=== PATIENT | female | born 2000 | race Caucasian/White ===

== ENCOUNTER 2018-02-17 12:01 | Emergency (ER) | payer MEDICAID, OTHER, SELFPAY | END 2018-02-17 13:17 | disposition left against medical advice (07) | LOC: ED 12:10 | DX: R22.32 Localized swelling, mass and lump, left upper limb (principal) | CPT/HCPCS: 99281 ==

== ENCOUNTER 2018-11-15 01:35 | Emergency (ER) | payer OTHER, MEDICAID, SELFPAY ==
[2018-11-15 01:46] VITALS: BP 124/78; PULSE 81; RESP 18; TEMP 37.1; O2SAT 100; BMI 25.2
[2018-11-15] MEDS: ONDANSETRON 4 MG/2 ML INJ IV ×2 (02:23→05:04)
--- NOTE | 2018-11-15 02:37 | ED_ITS ---
HPI - Abdominal Pain General Chief Complaint: Abdominal Pain Stated Complaint: vomiting x 2 hours, sharp pain left side Time Seen by Provider: 11/15/18 02:36 Source: patient Mode of arrival: ambulatory Limitations: no limitations History of Present Illness HPI narrative: The patient went out this evening with friends, she went to driving. She did not feel like eating before they left. She did have a sandwich was there. After eating she developed nausea and vomiting. She has chills and no fever. She has no diarrhea. No one around her has been ill. She has no chronic GI problems. She is not , she has no dysuria. She has no obvious problems. She is generally healthy with no medications. She has no URI symptoms, cough, congestion or discharge discomfort. Related Data Previous Rx's Medication Instructions Recorded ondansetron 4 mg PO Q4H PRN #10 tab 11/15/18 Allergies Allergy/AdvReac Type Severity Reaction Status Date / Time No Known Drug Allergies Allergy Verified 11/15/18 02:22 Review of Systems Constitutional Reports system reviewed and no additional complaints, except as docu Eyes Comments: No complaints ENT Ears, Nose, Mouth, and Throat: Denies dizziness Comments: No complaints Cardiovascular Denies chest pain, Denies rapid heart rate and Denies dyspnea Respiratory Denies cough and Denies dyspnea Gastrointestinal Gastrointestinal: Reports abdominal pain, Denies diarrhea and Reports vomiting Genitourinary Denies dysuria Comments: Not Musculoskeletal Reports back pain Integumentary/Breasts Denies rash Neurologic Denies confusion and Denies dizziness Psychiatric Denies confusion [facility] Medical History (Updated 11/15/18 @ 05:29 by Bryn Huddleston MD) No active medical problems (Acute) Surgical History (Updated 11/15/18 @ 02:47 by Bryn Huddleston MD) No pertinent past surgical history (Acute) Social History Smoking Status: Never smoker Social History Smoking Status: Never smoker Exam Initial Vital Signs Initial Vital Signs: Vital Signs Temperature 98.8 F 11/15/18 01:46 Pulse Rate 81 11/15/18 01:46 Respiratory Rate 18 11/15/18 01:46 Blood Pressure 124/78 11/15/18 01:46 Pulse Oximetry 100 07/20/19 01:46 Const General: cooperative and well developed Nutritional Appearance: well nourished Orientation: alert, awake, oriented x3 and not confused Other: She is shaking with chills HENMT Head: normocephalic and atraumatic Mouth: oral mucosae normal and oropharynx normal Eyes Pupils: PERRL EOM: EOM intact bilaterally Resp Auscultation: clear to auscultation bilaterally Cardio Rate: regular rate Rhythm: regular rhythm Heart Sounds: S1 normal, S2 normal, no murmurs and no rubs GI Inspection: non-distended Palpation: No guarding and tender (Mild epigastric and LUQ tenderness.) Auscultation: normal bowel sounds Back/Spine/Pelvis Back: CVA tenderness left Skin General: no rashes or lesions noted Neuro General: alert, oriented x3, gait normal and no focal motor deficits Speech: speech normal Extrem General: full ROM and no clubbing, cyanosis or edema Psych Appearance: well kempt Mental Status: mental status grossly normal Attitude: cooperative Thought Content: normal and suicidality Judgment: judgment good Course Course Narrative: The patient is feeling significantly better after receiving IV fluids, and IV medications. I did give her a 2nd dose of Zofran due to recurre nce of nausea. There is no further emesis. She is now with sip water without nausea or vomiting. She has improved, feeling ready for discharge. Orders Ordered: ED Orders 11/15/18 02:10 Complete Blood Count AUTO DIFF Stat Comprehensive Metabolic Panel Stat Lipase Stat 11/15/18 03:59 Urine Microscopic Stat Discontinued Medications Sodium Chloride (Normal Saline 0.9%) 1,000 mls @ 1,000 mls/hr IV BOLUS ONE Stop: 11/15/18 03:42 Last Infusion: 11/15/18 03:59 Dose: 1,000 mls/hr Infusion: 11/15/18 03:48 Dose: 1,000 mls/hr Admin: 11/15/18 02:56 Dose: 1,000 mls/hr Ketorolac Tromethamine (Toradol) 30 mg IV NOW ONE Stop: 11/15/18 02:44 Last Admin: 11/15/18 02:56 Dose: 30 mg Ondansetron HCl (Zofran) 4 mg IV NOW ONE Stop: 11/15/18 02:20 Last Admin: 11/15/18 02:23 Dose: 4 mg Ondansetron HCl (Zofran) 4 mg IV NOW ONE Stop: 11/15/18 04:58 Last Admin: 11/15/18 05:04 Dose: 4 mg Vital Signs - 8 hr 11/15/18 01:46 11/15/18 03:00 Temperature 98.8 F Pulse Rate 81 65 Respiratory Rate 18 18 Blood Pressure 124/78 Blood Pressure [Left Arm] 111/57 L Pulse Oximetry 100 100 MDM - Abdominal Pain Lab Data Result diagrams: 11/15/18 02:10 11/15/18 02:10 Lab Results 11/15/18 11/15/18 11/15/18 Range/Units 02:10 02:10 03:59 WBC 11.3 H (4.5-11.0) X10^3/uL RBC 4.78 (4.0-5.2) X10^6/uL Hgb 12.7 (12.0-16.0) g/dL Hct 38.3 (36-46) % MCV 80.3 (80-100) fL MCH 26.7 (26-34) PG MCHC 33.2 (30-36) % RDW 14.2 (11.6-14.8) % Plt Count 233 (150-400) X10^3/uL Neut % (Auto) Not Reportable Lymph % (Auto) Not Reportable Wilkinson % (Auto) Not Reportable Eos % (Auto) Not Reportable Baso % (Auto) Not Reportable Lymph # (Auto) Not Reportable Wilkinson # (Auto) Not Reportable Baso # (Auto) Not Reportable Total Counted 100 Seg Neutrophils % 77.0 H (38-70) % Lymphocytes % (Manual) 18.0 L (25-45) % Monocytes % (Manual) 4.0 (2-11) % Eosinophils % (Manual) 1.0 L (2-4) % Neutrophils # (Manual) 8701 H (4787-0556) /uL RBC Morphology Normal morphology Sodium 142 (137-145) mmol/L Potassium 3.8 (3.4-5.1) mmol/L Chloride 107 (98-107) mmol/L Carbon Dioxide 26 (22-32) mmol/L BUN 11 (7-17) mg/dL Creatinine 0.70 (0.52-1.04) mg/dL Estimated GFR > 60.0 (>60) mL/min BUN/Creatinine Ratio 15.7 (6-22) Glucose 102 H (70-100) mg/dL Calcium 9.4 (8.4-10.2) mg/dL Total Bilirubin 0.2 (0.2-1.3) mg/dL AST 22 (14-36) IU/L ALT 17 (9-52) IU/L Alkaline Phosphatase 62 (38-126) U/L Total Protein 7.8 (6.3-8.2) g/dL Albumin 4.6 (3.5-5.0) g/dL Globulin 3.2 (1.7-4.1) g/dL Albumin/Globulin Ratio 1.4 (1.0-2.8) Lipase 41 (23-300) U/L Urine RBC None seen (0-5/HPF) Urine WBC 10-30/hpf H (0-5/HPF) Ur Squamous Epith Cells >30 /hpf H (0-5/HPF) Urine Bacteria Many (>30) H (None) Ur Culture Indicated? Cult not indicated Micro UA Comment * Point of care testing: Point of Care Testing Test Results Negative Urine Dip Bedside Urine Glucose Negative Bedside Urine Bilirubin - Negative Bedside Urine Ketone ++ 40 Urine Specific [place] 1.015 Bedside Urine Occult Blood - Negative Bedside Urine pH 7.5 Bedside Urine Protein + 30 Bedside Urine Urobilinogen - Negative Bedside Urine Nitrite - Negative Bedside Urine Leukocytes +++ 500 Esterase Discharge Plan Departure Patient Disposition: Home Clinical Impression: Vomiting Instructions: DI for Vomiting -- Adult Activity Restrictions/Additional Instructions: Zofran every 4 hours as needed for nausea. Once returning home, start a sipping water and then a bland diet such as crackers, toast bananas. Adventure diet slowly as tolerated. Return the ER if necessary. Prescriptions: New ondansetron 4 mg tablet,disintegrating 4 mg PO Q4H PRN (Reason: nausea and vomiting) Qty: 10 RF: 0
[2018-11-15 02:55] LABS: Hematocrit 38.3 % (36-46); Hemoglobin 12.7 g/dL (12.0-16.0); Mean Corpuscular HGB Conc 33.2 % (30-36); Mean Corpuscular Hemoglobin 26.7 PG (26-34); Mean Corpuscular Volume 80.3 fL (80-100); Platelet Count 233 X10^3/uL (150-400); Red Blood Cell Count 4.78 X10^6/uL (4.0-5.2); Red Cell Distribution Width 14.2 % (11.6-14.8); White Blood Cell Count 11.3 X10^3/uL (4.5-11.0)
[2018-11-15 02:56] LABS: Add Manual Diff / Slide Review YES; Alanine Aminotransferase 17 IU/L (9-52); Albumin 4.6 g/dL (3.5-5.0); Albumin Globulin Ratio 1.4 (1.0-2.8); Alkaline Phosphatase 62 U/L (38-126); Aspartate Aminotransferase 22 IU/L (14-36); BUN Creatinine Ratio 15.7 (6-22); Bilirubin Total 0.2 mg/dL (0.2-1.3); Blood Urea Nitrogen 11 mg/dL (7-17); Calcium 9.4 mg/dL (8.4-10.2); Carbon Dioxide 26 mmol/L (22-32); Chloride 107 mmol/L (98-107); Estimated Glomerular Filt Rate > 60.0 mL/min (>60); Globulin 3.2 g/dL (1.7-4.1); Glucose 102 mg/dL (70-100); HEMOLYSIS < 15 (0-50); Lipase 41 U/L (23-300); Potassium 3.8 mmol/L (3.4-5.1); Sodium 142 mmol/L (137-145); Total Protein 7.8 g/dL (6.3-8.2)
[2018-11-15] MEDS: KETOROLAC 60 MG/2 ML VIAL 30 MG IV (02:56)
[2018-11-15] MEDS: SODIUM CHLORIDE 0.9% 1,000 ML 1000 ML IV (02:56)
[2018-11-15 03:00] VITALS: BP 111/57; PULSE 65; RESP 18; O2SAT 100
[2018-11-15 03:52] LABS: Neutrophils Absolute Manual 8701 /uL (3000-5900); Total Cells Counted 100
[2018-11-15 03:53] LABS: RBC Morphology Normal Morphology
[2018-11-15 04:06] LABS: RBC Urine None Seen (0-5/HPF)
[2018-11-15 04:15] LABS: Bacteria Urine Many (>30); Squamous Epithelial Cell Urine >30 /HPF (0-5/HPF); WBC Urine 10-30/HPF (0-5/HPF)
[2018-11-15 04:16] LABS: Culture Indicated Urine Cult Not Indicated
--- NOTE | 2018-11-15 05:08 | PC.NURSE ---
Pt medicated for nausea. Has not have any vomiting during this visit. Clear liquids provided for PO challenge. Second urine sample to be collected for testing. Will continue to monitor.
[2018-11-15 05:36] VITALS: BP 105/55; PULSE 72; RESP 12; O2SAT 99
[2018-11-15 05:50] VITALS: BP 111/72; PULSE 77; RESP 20; TEMP 36.8; O2SAT 98
== END 2018-11-15 05:51 | disposition home or self-care (01) ==
PROVIDERS: Emergency Provider Emergency Medicine
DX: R11.10 Vomiting, unspecified (principal); R10.9 Unspecified abdominal pain
CPT/HCPCS: 36591; 80053; 81003; 81015; 81025; 83690; 85025; 96361; 96374; 96375; 96376; 99283; 99284; J1885; J2405